=== PATIENT | female | born 1955 | race African-American/Black ===

== ENCOUNTER 2016-10-15 09:10 | Inpatient (IN) | payer OTHER ==
[~2016-10-15] VITALS: Ht 180.3 cm; Wt 213.2 kg
[~2016-10-15 09:10] MED LIST: ASPIRIN81 M2 PO; ATARAX10 MG PO; COREG3.125 M1 PO; FEOSOL325 MG PO; FLUOXETINE HCL20 MG PO; LASIX20 MG PO; LISINOPRIL5 MG PO; LITHIUM CARBON150 MG PO; LITHOBID300 MG PO; PROZAC40 MG PO; QUETIAPINE FUM300 MG PO; SEROQUEL300 MG PO; SYNTHROID100 MCG PO; VITAMIN D5000 UNI1 PO; WELLBUTRIN XL300 MG PO
[2016-10-15 10:29] LABS: EOSINOPHIL COUNT 0.2 K/uL (0-0.3); HEMATOCRIT 38.4 % (36.0-46.0); IMMATURE GRANULOCYTE (%) 0.5 % (0.0-0.7); IMMATURE GRANULOCYTE COUNT 0.1 K/uL; INSTRUMENT ABS NEUTROPHIL CT 6.3 K/uL; LYMPHOCYTE COUNT 1.9 K/uL (1.0-2.8); MCH 30.5 PG (29.0-34.0); MCHC 32.3 G/DL (30.0-36.0); MCV 94.3 FL (83-99); MEAN PLAT.VOLUME 10.1 uM^3 (9.5-12.4); MONOCYTE (%) 7.6 % (3-12); MONOCYTE COUNT 0.7 K/uL (0-0.8); NEUTROPHIL (%) 68.7 % (45-76); NEUTROPHIL COUNT 6.3 K/uL (1.8-6.4); PLATELET COUNT 314 K/uL (156-360); RBC DIS.WIDTH-CV 13.8 % (11.8-14.6); RBC DIS.WIDTH-SD 47.9 % (39-53); RED BLOOD COUNT 4.07 M/uL (3.80-5.20); WHITE BLOOD COUNT 9.2 K/uL (4.1-10.2)
[2016-10-15 10:34] LABS: PROTHROMBIN TIME 11.4 SEC (10.2-12.9)
[2016-10-15 10:40] LABS: CHLORIDE 103 mEq/L (99-109); POTASSIUM 4.8 mEq/L (3.7-5.4); SODIUM 138 mEq/L (136-147)
[2016-10-15 10:41] LABS: MAGNESIUM 1.9 mg/dL (1.3-2.7)
[2016-10-15 10:42] LABS: GLUCOSE 97 mg/dL (70-99)
[2016-10-15 10:44] LABS: ANION GAP 9 MEQ/L (2-14)
[2016-10-15 10:46] LABS: GFR ESTIMATE (CALCULATED) > 59 mL/min/
[2016-10-15 10:47] LABS: UREA NITROGEN (BUN) 14 mg/dL (9-23)
[2016-10-15 10:52] LABS: TROP-I INTERPRETATION NEGATIVE; TROPONIN-I < 0.01 ng/mL (0.0-0.30)
[2016-10-15] MEDS ORDERED: PROZAC40 MG PO (13:51)
[2016-10-15] MEDS ORDERED: SEROQUEL300 MG PO (13:52)
[2016-10-15] MEDS ORDERED: SYNTHROID150 MCG PO (13:53)
[2016-10-15] MEDS ORDERED: VITAMIN C1000 MG PO (13:54)
[2016-10-15] MEDS ORDERED: MOBIC15 MG PO (13:55)
[2016-10-15 16:25] VITALS: BP 129/68
[2016-10-15 17:13] LABS: AMPHETAMINES QUANT VALUE 0 NG/ML; BARBITUATES QUANT VALUE 0 NG/ML; BENZODIAZEPINES QUANT VALUE 0 NG/ML; BENZODIAZEPINES, URINE SCREEN Negative (200 ng/mL); MARIJUANA QUANT VALUE 0 NG/ML; OPIATES QUANTITATIVE VALUE 0 NG/ML; PHENCYCLIDINE QUANT VALUE 0 NG/ML
[2016-10-15 17:32] LABS: TROP-I INTERPRETATION NEGATIVE; TROPONIN-I < 0.01 ng/mL (0.0-0.30)
[2016-10-15 19:54] VITALS: BP 109/58
[2016-10-15 23:40] VITALS: BP 119/56
[2016-10-15 23:57] LABS: TROP-I INTERPRETATION NEGATIVE; TROPONIN-I < 0.01 ng/mL (0.0-0.30)
[2016-10-16 03:47] VITALS: BP 140/67
[2016-10-16 08:40] VITALS: BP 122/70
[2016-10-16 11:39] VITALS: BP 121/72
[2016-10-16 16:20] VITALS: BP 126/61
[2016-10-16 19:19] VITALS: BP 116/54
[2016-10-16 23:46] VITALS: BP 113/59
[2016-10-17 03:15] VITALS: BP 88/54
[2016-10-17 06:30] LABS: EOSINOPHIL (%) 3.7 % (0-5); EOSINOPHIL COUNT 0.2 K/uL (0-0.3); HEMATOCRIT 36.2 % (36.0-46.0); IMMATURE GRANULOCYTE (%) 0.2 % (0.0-0.7); INSTRUMENT ABS NEUTROPHIL CT 3.4 K/uL; LYMPHOCYTE COUNT 1.4 K/uL (1.0-2.8); MCHC 31.5 G/DL (30.0-36.0); MCV 95.3 FL (83-99); MEAN PLAT.VOLUME 10.5 uM^3 (9.5-12.4); MONOCYTE COUNT 0.7 K/uL (0-0.8); NEUTROPHIL (%) 59.8 % (45-76); NEUTROPHIL COUNT 3.4 K/uL (1.8-6.4); PLATELET COUNT 236 K/uL (156-360); RBC DIS.WIDTH-CV 13.6 % (11.8-14.6); RBC DIS.WIDTH-SD 47.8 % (39-53); WHITE BLOOD COUNT 5.7 K/uL (4.1-10.2)
[2016-10-17 06:59] LABS: ANION GAP 3 MEQ/L (2-14); CHLORIDE 106 MEQ/L (99-109); GFR ESTIMATE (CALCULATED) > 59 mL/min/; GLUCOSE 114 mg/dL (70-99); SAMPLE HEMOLYSIS CHECK 0; SAMPLE ICTERIC CHECK 0; SAMPLE LIPEMIA CHECK 0; SODIUM 144 MEQ/L (136-147); UREA NITROGEN (BUN) 15 mg/dL (9-23)
[2016-10-17 08:43] VITALS: BP 113/59
[2016-10-17 11:47] VITALS: BP 114/55
[2016-10-17 16:00] VITALS: BP 110/61
[2016-10-17 19:46] VITALS: BP 118/62
[2016-10-17 22:41] VITALS: BP 137/65
[2016-10-18 03:53] VITALS: BP 116/58
[2016-10-18 07:59] VITALS: BP 128/61
[2016-10-18 10:24] LABS: HEMATOCRIT 37.1 % (36.0-46.0); MCHC 31.5 G/DL (30.0-36.0); MCV 95.1 FL (83-99); MEAN PLAT.VOLUME 10.1 uM^3 (9.5-12.4); PLATELET COUNT 248 K/uL (156-360); RBC DIS.WIDTH-CV 13.5 % (11.8-14.6); RBC DIS.WIDTH-SD 47.7 % (39-53)
[2016-10-18 10:44] LABS: ANION GAP 4 MEQ/L (2-14); CHLORIDE 104 MEQ/L (99-109); POTASSIUM 4.2 MEQ/L (3.7-5.4); SAMPLE HEMOLYSIS CHECK 0; SAMPLE ICTERIC CHECK 0; SAMPLE LIPEMIA CHECK 0; SODIUM 143 MEQ/L (136-147)
[2016-10-18 10:49] LABS: GFR ESTIMATE (CALCULATED) > 59 mL/min/; GLUCOSE 133 mg/dL (70-99); UREA NITROGEN (BUN) 14 mg/dL (9-23)
[2016-10-18 11:24] VITALS: BP 148/64
[2016-10-18 16:47] VITALS: BP 120/70
[2016-10-18 20:14] VITALS: BP 139/60
[2016-10-19 00:35] VITALS: BP 124/58
[2016-10-19 03:29] VITALS: BP 135/74
[2016-10-19 07:20] VITALS: BP 124/66
[2016-10-19 11:05] VITALS: BP 112/59
[2016-10-19 15:28] VITALS: BP 132/71
[2016-10-19 20:18] VITALS: BP 130/66
[2016-10-20 00:26] VITALS: BP 147/66
[2016-10-20 04:26] VITALS: BP 113/59
[2016-10-20] MEDS ORDERED: NICORELIEF2 MG BC (14:03)
[2016-10-20] MEDS ORDERED: TYLENOL REGULA325 MG PO (14:04)
[2016-10-20 16:20] VITALS: BP 147/67
== END 2016-10-20 19:17 | DRG 312 ==
LOC: EME → EDBD 09:10 → EDOF 13:37 → 3EAST 13:37 → ENRESERV 13:52 → 3EAST 15:26
PROVIDERS: Emergency Medicine; Hospitalist; Internal Medicine; Physician Assistant
DX: R55 Syncope and collapse (principal); E66.01 Morbid (severe) obesity due to excess calories; I27.2 Other secondary pulmonary hypertension; I50.9 Heart failure, unspecified; I07.1 Rheumatic tricuspid insufficiency; I44.0 Atrioventricular block, first degree; Z68.44 Body mass index [BMI] 60.0-69.9, adult; S82.53XA Displaced fracture of medial malleolus of unspecified tibia, initial encounter for closed fracture; S82.892A Other fracture of left lower leg, initial encounter for closed fracture; M17.12 Unilateral primary osteoarthritis, left knee; W07.XXXA Fall from chair, initial encounter; G47.33 Obstructive sleep apnea (adult) (pediatric); J44.9 Chronic obstructive pulmonary disease, unspecified; R09.02 Hypoxemia; F32.9 Major depressive disorder, single episode, unspecified; F17.210 Nicotine dependence, cigarettes, uncomplicated; E03.9 Hypothyroidism, unspecified; R04.0 Epistaxis; Z99.3 Dependence on wheelchair; Z91.19 Patient's noncompliance with other medical treatment and regimen; Z91.14 Patient's other noncompliance with medication regimen; Z79.899 Other long term (current) drug therapy; Z79.82 Long term (current) use of aspirin; F19.21 Other psychoactive substance dependence, in remission
CPT/HCPCS: 70450; 71010; 73590; 73610; 80048; 80178; 80306 90; 83735; 84484; 85025; 85027; 85610; 85730; 93005; 93306; 93880; 94799; 99281; 99284; G0378; J1650; J3010; J7030

== ENCOUNTER 2017-06-09 16:59 | Inpatient (IN) | payer OTHER ==
[~2017-06-09] VITALS: Ht 177.8 cm; Wt 174.5 kg
[~2017-06-09 16:59] MED LIST changes: +FLUOXETINE HCL60 MG PO; +MOBIC15 MG PO; +NICORELIEF2 MG BC; +SYNTHROID150 MCG PO; +TYLENOL REGULA325 MG PO; +VITAMIN C WITH500 M2 PO
[2017-06-09 17:59] LABS: BASOPHIL (%) 0.3 % (0-1); EOSINOPHIL (%) 2.2 % (0-5); EOSINOPHIL COUNT 0.3 K/uL (0-0.3); HEMATOCRIT 37.1 % (36.0-46.0); HEMOGLOBIN 11.9 G/DL (11.9-15.5); IMMATURE GRANULOCYTE (%) 0.4 % (0.0-0.7); LYMPHOCYTE (%) 9.2 % (15-42); MCH 28.7 PG (29.0-34.0); MCHC 32.1 G/DL (30.0-36.0); MCV 89.4 FL (83-99); MONOCYTE (%) 8.5 % (3-12); NEUTROPHIL (%) 79.4 % (45-76); PLATELET COUNT 269 K/uL (156-360); RBC DIS.WIDTH-CV 14.4 % (11.8-14.6); RBC DIS.WIDTH-SD 46.6 % (39-53); RED BLOOD COUNT 4.15 M/uL (3.80-5.20); WHITE BLOOD COUNT 11.3 K/uL (4.1-10.2)
[2017-06-09 18:05] LABS: INTER. NORMALIZED RATIO 1.2
[2017-06-09 18:08] LABS: PTT 30.9 SEC (25-37)
[2017-06-09 18:11] LABS: CHLORIDE 104 mEq/L (99-109); POTASSIUM 3.6 mEq/L (3.7-5.4); SODIUM 142 mEq/L (136-147)
[2017-06-09 18:12] LABS: MAGNESIUM 1.8 mg/dL (1.3-2.7)
[2017-06-09 18:13] LABS: GLUCOSE 99 mg/dL (70-99)
[2017-06-09 18:17] LABS: CREATININE 0.8 mg/dL (0.6-1.3); GFR ESTIMATE (CALCULATED) > 59 mL/min/; UREA NITROGEN (BUN) 9 mg/dL (9-23)
[2017-06-09 18:21] LABS: TROP-I INTERPRETATION NEGATIVE; TROPONIN-I < 0.01 ng/mL (0.0-0.30)
[2017-06-09] MEDS ORDERED: WELLBUTRIN XL300 MG PO (21:51)
[2017-06-09] MEDS ORDERED: PROTONIX40 MG PO (21:54)
[2017-06-09] MEDS ORDERED: FLEXERIL5 MG PO (21:56)
[2017-06-10] VITALS (7 sets, daily range): BP systolic 100–157; BP diastolic 56–71
[2017-06-10 06:21] LABS: BASOPHIL (%) 0.2 % (0-1); EOSINOPHIL (%) 0.1 % (0-5); HEMATOCRIT 37.1 % (36.0-46.0); HEMOGLOBIN 11.6 G/DL (11.9-15.5); IMMATURE GRANULOCYTE (%) 0.4 % (0.0-0.7); LYMPHOCYTE (%) 5.7 % (15-42); LYMPHOCYTE COUNT 0.5 K/uL (1.0-2.8); MCHC 31.3 G/DL (30.0-36.0); MCV 89.6 FL (83-99); MONOCYTE (%) 1.8 % (3-12); MONOCYTE COUNT 0.2 K/uL (0-0.8); NEUTROPHIL (%) 91.8 % (45-76); NEUTROPHIL COUNT 8.5 K/uL (1.8-6.4); PLATELET COUNT 281 K/uL (156-360); RBC DIS.WIDTH-CV 14.5 % (11.8-14.6); RBC DIS.WIDTH-SD 47.4 % (39-53); RED BLOOD COUNT 4.14 M/uL (3.80-5.20); WHITE BLOOD COUNT 9.3 K/uL (4.1-10.2)
[2017-06-10 06:56] LABS: CHLORIDE 106 MEQ/L (99-109); CREATININE 0.6 MG/DL (0.6-1.3); GFR ESTIMATE (CALCULATED) > 59 mL/min/; GLUCOSE 146 mg/dL (70-99); POTASSIUM 4.3 MEQ/L (3.7-5.4); SODIUM 142 MEQ/L (136-147); UREA NITROGEN (BUN) 8 mg/dL (9-23)
[2017-06-11 03:34] VITALS: BP 124/70
[2017-06-11 07:55] VITALS: BP 111/57
[2017-06-11 12:00] VITALS: BP 114/58
[2017-06-11 16:10] LABS: HEMATOCRIT 36.2 % (36.0-46.0); HEMOGLOBIN 11.4 G/DL (11.9-15.5); MCH 28.7 PG (29.0-34.0); MCHC 31.5 G/DL (30.0-36.0); MCV 91.2 FL (83-99); NRBC (%) 0.2 /100 WBC (0-0); RBC DIS.WIDTH-CV 14.4 % (11.8-14.6); RBC DIS.WIDTH-SD 47.7 % (39-53); RED BLOOD COUNT 3.97 M/uL (3.80-5.20); WHITE BLOOD COUNT 15.1 K/uL (4.1-10.2)
[2017-06-11 16:13] VITALS: BP 125/70
[2017-06-11 16:35] LABS: CHLORIDE 104 MEQ/L (99-109); CREATININE 0.6 MG/DL (0.6-1.3); GFR ESTIMATE (CALCULATED) > 59 mL/min/; GLUCOSE 155 mg/dL (70-99); POTASSIUM 4.7 MEQ/L (3.7-5.4); SODIUM 139 MEQ/L (136-147); UREA NITROGEN (BUN) 11 mg/dL (9-23)
[2017-06-11 16:38] LABS: PLAT.SUFFICIENCY ADEQUATE; PLATELET COUNT 318 K/uL (156-360)
[2017-06-11 19:54] VITALS: BP 129/82
[2017-06-11 23:35] VITALS: BP 135/68
[2017-06-12 03:51] VITALS: BP 126/71
[2017-06-12 06:53] LABS: HEMATOCRIT 36.6 % (36.0-46.0); HEMOGLOBIN 11.5 G/DL (11.9-15.5); MCH 28.5 PG (29.0-34.0); MCHC 31.4 G/DL (30.0-36.0); MCV 90.8 FL (83-99); PLATELET COUNT 320 K/uL (156-360); RBC DIS.WIDTH-CV 14.4 % (11.8-14.6); RBC DIS.WIDTH-SD 47.7 % (39-53); RED BLOOD COUNT 4.03 M/uL (3.80-5.20); WHITE BLOOD COUNT 12.8 K/uL (4.1-10.2)
[2017-06-12 07:18] LABS: CHLORIDE 105 MEQ/L (99-109); CREATININE 0.5 MG/DL (0.6-1.3); GFR ESTIMATE (CALCULATED) > 59 mL/min/; GLUCOSE 144 mg/dL (70-99); POTASSIUM 5.1 MEQ/L (3.7-5.4); SODIUM 141 MEQ/L (136-147); UREA NITROGEN (BUN) 14 mg/dL (9-23)
[2017-06-12 07:54] VITALS: BP 146/81
[2017-06-12 17:56] VITALS: BP 142/80
[2017-06-12 23:44] VITALS: BP 142/68
[2017-06-13 06:41] LABS: HEMATOCRIT 36.6 % (36.0-46.0); HEMOGLOBIN 11.4 G/DL (11.9-15.5); MCH 27.9 PG (29.0-34.0); MCHC 31.1 G/DL (30.0-36.0); MCV 89.5 FL (83-99); PLATELET COUNT 338 K/uL (156-360); RBC DIS.WIDTH-CV 13.9 % (11.8-14.6); RBC DIS.WIDTH-SD 45.2 % (39-53); RED BLOOD COUNT 4.09 M/uL (3.80-5.20); WHITE BLOOD COUNT 10.6 K/uL (4.1-10.2)
[2017-06-13 07:04] LABS: CHLORIDE 102 MEQ/L (99-109); CREATININE 0.6 MG/DL (0.6-1.3); GFR ESTIMATE (CALCULATED) > 59 mL/min/; GLUCOSE 153 mg/dL (70-99); POTASSIUM 4.5 MEQ/L (3.7-5.4); SODIUM 139 MEQ/L (136-147); UREA NITROGEN (BUN) 17 mg/dL (9-23)
[2017-06-13 08:00] VITALS: BP 163/72
[2017-06-13 16:00] VITALS: BP 172/76
[2017-06-13 16:32] VITALS: BP 138/85
[2017-06-14 00:06] VITALS: BP 158/79
[2017-06-14 06:49] LABS: HEMATOCRIT 37.5 % (36.0-46.0); HEMOGLOBIN 12.1 G/DL (11.9-15.5); MCH 28.6 PG (29.0-34.0); MCHC 32.3 G/DL (30.0-36.0); MCV 88.7 FL (83-99); PLATELET COUNT 334 K/uL (156-360); RBC DIS.WIDTH-CV 13.8 % (11.8-14.6); RBC DIS.WIDTH-SD 44.9 % (39-53); RED BLOOD COUNT 4.23 M/uL (3.80-5.20); WHITE BLOOD COUNT 11.3 K/uL (4.1-10.2)
[2017-06-14 07:11] LABS: CHLORIDE 100 MEQ/L (99-109); CREATININE 0.6 MG/DL (0.6-1.3); GFR ESTIMATE (CALCULATED) > 59 mL/min/; GLUCOSE 169 mg/dL (70-99); POTASSIUM 4.7 MEQ/L (3.7-5.4); SODIUM 140 MEQ/L (136-147); UREA NITROGEN (BUN) 18 mg/dL (9-23)
[2017-06-14 08:16] VITALS: BP 152/79
[2017-06-14 16:13] VITALS: BP 181/84
[2017-06-14 22:37] VITALS: BP 155/80
[2017-06-14 23:38] VITALS: BP 149/68
[2017-06-15 06:47] LABS: BASOPHIL (%) 0.3 % (0-1); EOSINOPHIL (%) 0 % (0-5); HEMOGLOBIN 12.2 G/DL (11.9-15.5); IMMATURE GRANULOCYTE (%) 1.1 % (0.0-0.7); LYMPHOCYTE (%) 7.5 % (15-42); LYMPHOCYTE COUNT 0.9 K/uL (1.0-2.8); MCH 27.9 PG (29.0-34.0); MCHC 30.5 G/DL (30.0-36.0); MCV 91.3 FL (83-99); MONOCYTE (%) 7.5 % (3-12); MONOCYTE COUNT 0.9 K/uL (0-0.8); NEUTROPHIL (%) 83.6 % (45-76); NEUTROPHIL COUNT 10.3 K/uL (1.8-6.4); PLATELET COUNT 332 K/uL (156-360); RBC DIS.WIDTH-CV 13.8 % (11.8-14.6); RBC DIS.WIDTH-SD 46.3 % (39-53); RED BLOOD COUNT 4.38 M/uL (3.80-5.20); WHITE BLOOD COUNT 12.3 K/uL (4.1-10.2)
[2017-06-15 06:58] LABS: CHLORIDE 98 MEQ/L (99-109); CREATININE 0.5 MG/DL (0.6-1.3); GFR ESTIMATE (CALCULATED) > 59 mL/min/; GLUCOSE 186 mg/dL (70-99); POTASSIUM 4.6 MEQ/L (3.7-5.4); SODIUM 136 MEQ/L (136-147); UREA NITROGEN (BUN) 20 mg/dL (9-23)
[2017-06-15 07:36] VITALS: BP 135/74
[2017-06-15 16:15] VITALS: BP 140/75
[2017-06-15 23:35] VITALS: BP 128/69
[2017-06-16 06:24] VITALS: BP 130/67
[2017-06-16 07:19] VITALS: BP 128/78
[2017-06-16 11:13] VITALS: BP 120/72
[2017-06-16 16:00] VITALS: BP 115/67
[2017-06-16 23:24] VITALS: BP 160/73
[2017-06-17 07:24] VITALS: BP 138/80
[2017-06-17 09:33] LABS: HEMOGLOBIN 12.5 G/DL (11.9-15.5); MCH 28.5 PG (29.0-34.0); MCHC 32.1 G/DL (30.0-36.0); MCV 88.8 FL (83-99); PLATELET COUNT 384 K/uL (156-360); RBC DIS.WIDTH-CV 14.2 % (11.8-14.6); RBC DIS.WIDTH-SD 45.5 % (39-53); RED BLOOD COUNT 4.39 M/uL (3.80-5.20); WHITE BLOOD COUNT 15.1 K/uL (4.1-10.2)
[2017-06-17 10:01] LABS: CHLORIDE 97 MEQ/L (99-109); CREATININE 0.6 MG/DL (0.6-1.3); GFR ESTIMATE (CALCULATED) > 59 mL/min/; GLUCOSE 149 mg/dL (70-99); POTASSIUM 4.3 MEQ/L (3.7-5.4); SODIUM 136 MEQ/L (136-147); UREA NITROGEN (BUN) 23 mg/dL (9-23)
[2017-06-17 11:00] VITALS: BP 124/60
[2017-06-17 15:54] VITALS: BP 115/69
[2017-06-17 23:45] VITALS: BP 127/60
[2017-06-18 08:05] VITALS: BP 119/59
[2017-06-18 08:49] LABS: HEMOGLOBIN 12.5 G/DL (11.9-15.5); MCH 28.3 PG (29.0-34.0); MCHC 32.1 G/DL (30.0-36.0); MCV 88.4 FL (83-99); PLATELET COUNT 342 K/uL (156-360); RBC DIS.WIDTH-CV 14.2 % (11.8-14.6); RBC DIS.WIDTH-SD 45.4 % (39-53); RED BLOOD COUNT 4.41 M/uL (3.80-5.20); WHITE BLOOD COUNT 14.4 K/uL (4.1-10.2)
[2017-06-18 17:09] VITALS: BP 129/69
[2017-06-19] VITALS: BP 124/62
[2017-06-19 08:32] LABS: HEMOGLOBIN 12.7 G/DL (11.9-15.5); MCH 28.9 PG (29.0-34.0); MCHC 32.6 G/DL (30.0-36.0); MCV 88.8 FL (83-99); PLATELET COUNT 340 K/uL (156-360); RBC DIS.WIDTH-CV 14.5 % (11.8-14.6); RBC DIS.WIDTH-SD 46.1 % (39-53); RED BLOOD COUNT 4.39 M/uL (3.80-5.20); WHITE BLOOD COUNT 17.1 K/uL (4.1-10.2)
[2017-06-19 08:42] VITALS: BP 125/59
[2017-06-19 16:31] VITALS: BP 112/61
[2017-06-19 23:34] VITALS: BP 130/73
[2017-06-20 07:16] VITALS: BP 122/54
[2017-06-20 07:18] LABS: BASOPHIL (%) 0.4 % (0-1); BASOPHIL COUNT 0.1 K/uL (0-0.1); EOSINOPHIL (%) 0.7 % (0-5); EOSINOPHIL COUNT 0.1 K/uL (0-0.3); HEMATOCRIT 38.6 % (36.0-46.0); IMMATURE GRANULOCYTE (%) 2.5 % (0.0-0.7); LYMPHOCYTE (%) 15.1 % (15-42); LYMPHOCYTE COUNT 2.4 K/uL (1.0-2.8); MCH 27.5 PG (29.0-34.0); MCHC 31.1 G/DL (30.0-36.0); MCV 88.3 FL (83-99); MONOCYTE (%) 8.7 % (3-12); MONOCYTE COUNT 1.4 K/uL (0-0.8); NEUTROPHIL (%) 72.6 % (45-76); NEUTROPHIL COUNT 11.5 K/uL (1.8-6.4); PLATELET COUNT 336 K/uL (156-360); RBC DIS.WIDTH-CV 14.6 % (11.8-14.6); RBC DIS.WIDTH-SD 46.7 % (39-53); RED BLOOD COUNT 4.37 M/uL (3.80-5.20); WHITE BLOOD COUNT 15.8 K/uL (4.1-10.2)
[2017-06-20] MEDS ORDERED: SPIRIVA RESPIMAT4 GM IH (11:40)
[2017-06-20] MEDS ORDERED: PANTOPRAZOLE SO40 MG PO (11:40)
[2017-06-20] MEDS ORDERED: DULERA 100 MCG/13 GM IH (11:40)
[2017-06-20] MEDS ORDERED: THEOPHYLLINE400 MG PO (11:40)
[2017-06-20] MEDS ORDERED: PREDNISONE20 MG PO (11:40)
== END 2017-06-20 16:26 | DRG 189 ==
LOC: EME 16:59 → 5SOUTH 22:31 → EDOF 22:31 → ENRESERV 22:32 → 5SOUTH 23:50
PROVIDERS: Emergency Medicine; Family Medicine; Hospitalist; Internal Medicine; Physician Assistant Medical
PROC: 5A09357 Assistance with Respiratory Ventilation, Less than 24 Consecutive Hours, Continuous Positive Airway Pressure (ICD-10-PCS; principal; 2017-06-11)
DX: J96.01 Acute respiratory failure with hypoxia (principal); J44.0 Chronic obstructive pulmonary disease with (acute) lower respiratory infection; J18.9 Pneumonia, unspecified organism; Y95 Nosocomial condition; J20.9 Acute bronchitis, unspecified; J44.1 Chronic obstructive pulmonary disease with (acute) exacerbation; E87.6 Hypokalemia; I11.0 Hypertensive heart disease with heart failure; I50.32 Chronic diastolic (congestive) heart failure; E03.9 Hypothyroidism, unspecified; F31.9 Bipolar disorder, unspecified; G40.909 Epilepsy, unspecified, not intractable, without status epilepticus; K21.9 Gastro-esophageal reflux disease without esophagitis; D50.9 Iron deficiency anemia, unspecified; F41.9 Anxiety disorder, unspecified; G89.29 Other chronic pain; M17.9 Osteoarthritis of knee, unspecified; M54.9 Dorsalgia, unspecified; M54.30 Sciatica, unspecified side; E66.2 Morbid (severe) obesity with alveolar hypoventilation; F17.200 Nicotine dependence, unspecified, uncomplicated; Z68.43 Body mass index [BMI] 50.0-59.9, adult; Z91.19 Patient's noncompliance with other medical treatment and regimen; Z79.82 Long term (current) use of aspirin
CPT/HCPCS: 71046; 71275; 80048; 80202; 83605; 83735; 83880; 84484; 85025; 85027; 85610; 85730; 87040; 87070; 87205; 87502; 87641; 93005; 94010; 94640; 94640 76; 94660; 94760; 94799; 97530 GO; 97530 GP; 99202; 99281; 99285; J0456; J0692; J1644; J1956; J2920; J3370; J7040; J7512